=== PATIENT | male | born 1960 | race Caucasian/White ===

== ENCOUNTER 2020-04-15 06:20 | Outpatient (CLI) | payer OTHER, SELFPAY ==
[2020-04-15 17:27] LABS: SARS-CoV-2 RNA PCR Negative
== END 2020-04-15 06:21 | disposition home or self-care (01) ==
LOC: ANHCOVIDDT 06:20
PROVIDERS: PCP Emergency Medicine; Visit Provider Internal Medicine Gastroenterology
DX: Z01.812 Encounter for preprocedural laboratory examination (principal); Z11.59 Encounter for screening for other viral diseases
CPT/HCPCS: 87635; C9803; U0003

== ENCOUNTER 2020-04-18 03:26 | Day surgery (SDC) | payer OTHER, SELFPAY ==
[2020-04-12 09:51] VITALS: BMI 30.2
[2020-04-18 09:36] VITALS: BP 125/89; PULSE 70; RESP 18; TEMP 36.8; O2SAT 99; BMI 30.2
[2020-04-18] MEDS: LACTATED RINGERS 1,000 ML 150 ML IV CONT (09:41)
--- NOTE | 2020-04-18 09:51 | P.PNAN_ITS ---
Anes - Initial Pre Proc Eval Procedure: Operation Date: 04/18/20 10:30 Proposed Procedures p Esophagogastroduodenoscopy - Mikel Jameson MD Date/Time: 04/18/20 09:51 Surgeon: Mikel Jameson MD Pre Op Diagnosis: Reflux Patient Data Age: 59 Gender: M Height: 5 ft 8 in Weight: 90 kg Last Vital Signs Temp 98.2 F 04/18/20 09:36 Pulse 70 04/18/20 09:36 Resp 18 04/18/20 09:36 BP 125/89 04/18/20 09:36 Pulse Ox 99 04/18/20 09:36 Allergies Allergy/AdvReac Type Severity Reaction Status Date / Time No Known Allergies Allergy Unknown Verified 04/18/20 09:42 Home Medications Medication Instructions Recorded Confirmed Type allopurinol 100 mg PO DAILY PRN 04/12/20 04/18/20 History esomeprazole magnesium 40 mg PO DAILY 04/12/20 04/18/20 History irbesartan 75 mg PO DAILY 04/12/20 04/18/20 History Patient hx anesthesia problems: none Family hx [facility] problems: none [facility] Past Medical History Medical History (Updated 04/18/20 @ 09:51 by Paulie Aceves MD) Asthma exercised induced; uses inhaler prior to exercise GERD (gastroesophageal reflux disease) Hypertension Family History Family History (Updated 09/05/14 @ 08:21 by DOCTOR UNKNOWN) Other Cerebrovascular accident Diabetes mellitus Social History Social History Smoking status: Never smoker Alcohol intake: never Anes - Eval Final PreProcedure Day of Procedure 04/18/20 09:51 Patient weight: obese Heart: regular rate and rhythm Lungs: clear to auscultation Airway: Mallampati scale class II Neurological: alert and oriented Last oral intake: >/= 8 hours ASA classification: III Emergent: no Anesthetic plan: proceed Anesthesia type and monitoring: general GIVS and standard monitoring Informed Consent: The patient's anesthetic plan and its attendant risks and benefits were discussed with the patient/family/POA. Questions were solicited and answers provided to the satisfaction of the patient/family/POA.
--- NOTE | 2020-04-18 09:59 | PM.HPGS ---
History of Present Illness History of Present Illness Consent: Risks, benefits, and alternatives have been discussed and questions answered. Patient agrees to proceed with procedure. Chief complaint: Reflux Narrative: Sahil Lugo is a 59 year old male with refractory reflux symptoms despite therapy PMFSH Past Medical History Medical History Asthma exercised induced; uses inhaler prior to exercise GERD (gastroesophageal reflux disease) Hypertension Family History Family History Other Cerebrovascular accident Diabetes mellitus Social History Social History Smoking status: Never smoker Alcohol intake: never Meds Home Medications and Allergies Home Medications Medication Instructions Recorded Confirmed Type allopurinol 100 mg PO DAILY PRN 04/12/20 04/18/20 History esomeprazole magnesium 40 mg PO DAILY 04/12/20 04/18/20 History irbesartan 75 mg PO DAILY 04/12/20 04/18/20 History Allergies Allergy/AdvReac Type Severity Reaction Status Date / Time No Known Allergies Allergy Unknown Verified 04/18/20 09:42 Vital Signs Vital Signs - 24 hr 04/18/20 09:36 Temperature 36.8 C Pulse Rate 70 Respiratory Rate 18 Blood Pressure 125/89 Pulse Oximetry 99 Exam Const: General: alert Orientation/consciousness: patient oriented x3 Resp: Auscultation: clear to auscultation bilaterally Cardio: Rhythm: regular rhythm GI: GI Palp: Yes Soft to palpation and No Tenderness to palpation present (GI) Neuro: General: patient oriented x3 Assessment and Plan Assessment and plan (1) GERD (gastroesophageal reflux disease): Code(s): K21.9 - Gastro-esophageal reflux disease without esophagitis Status: Acute Assessment and Plan: EGD with possible biopsy or dilatation or cautery.
[2020-04-18 10:38] VITALS: BP 123/80; PULSE 79; RESP 18; O2SAT 97
[2020-04-18 10:48] VITALS: BP 120/77; PULSE 74; RESP 18; O2SAT 96
[2020-04-18 10:58] VITALS: BP 127/92; PULSE 70; RESP 20; O2SAT 99
== END 2020-04-18 11:11 | disposition home or self-care (01) ==
PROVIDERS: PCP Emergency Medicine; Visit Provider Internal Medicine Gastroenterology
PROC: 0DJ08ZZ Inspection of Upper Intestinal Tract, Via Natural or Artificial Opening Endoscopic (ICD-10-PCS; CPT 43235; principal; 2020-04-18 10:30)
DX: K21.0 Gastro-esophageal reflux disease with esophagitis (principal); I10 Essential (primary) hypertension; E66.9 Obesity, unspecified; Z68.30 Body mass index [BMI] 30.0-30.9, adult
CPT/HCPCS: 43239; 88305; J2704; J7120